=== PATIENT | female | born 1960 | race Caucasian/White ===

== ENCOUNTER 2024-04-01 13:21 | Outpatient (CLI) | payer SELFPAY ==
[2024-04-01 14:51] LABS: #Basophils 0.04 10x3/uL (0.0-0.2); %Basophils 0.4 % (0.0-1.0); %Eosinophils 1.2 % (0.0-10.0); %Monocytes 7.1 % (0.0-10.0); %Neutrophils 62.9 % (42.0-75.0); Hematocrit 46.9 % (36.0-47.0); Mean Corpuscular Hemoglobin 30.2 pg (27.0-31.0); Mean Corpuscular Volume 94.6 fL (78.0-98.0); Mean Platelet Volume 11.8 fL (7.4-10.4); Platelet Count 291 10x3/uL (130-400); RBC Distribution Width 13.5 % (11.5-14.5); Red Blood Cell (RBC) Count 4.96 mill/uL (4.20-5.40)
[2024-04-01 15:05] LABS: Hemoglobin A1c 5.5 % (4.0-6.0)
[2024-04-01 15:11] LABS: ALT (SGPT) 58 U/L (8-55); AST (SGOT) 35 U/L (5-34); Albumin 4.2 g/dL (3.4-4.8); Alkaline Phosphatase 67 U/L (40-110); Anion Gap 12 mmol/L (10-20); BUN (Urea Nitrogen) 16 mg/dL (9.8-20.1); Bilirubin, Total 0.3 mg/dL (0.2-1.2); Calc. Creatinine Clearance 0 mL/min (70-130); Calcium 9.9 mg/dL (7.8-10.44); Carbon Dioxide 28 mmol/L (23-31); Chloride 107 mmol/L (98-107); Estimated GFR 94; Globulin 3.2 g/dL (2.4-3.5); Glucose 95 mg/dL (80-115); Potassium 4.2 mmol/L (3.5-5.1); Protein, Total 7.4 g/dL (5.8-8.1); Sodium 143 mmol/L (136-145)
== END 2024-04-01 13:22 | disposition home or self-care (01) ==
LOC: LABBT 13:21
PROVIDERS: ATTEND Surgery
DX: Z01.818 Encounter for other preprocedural examination (principal); E66.01 Morbid (severe) obesity due to excess calories
CPT/HCPCS: 71046; 80053; 83036; 85025

== ENCOUNTER 2024-04-01 13:30 | Inpatient (IN) | payer OTHER ==
[2024-04-02] MEDS ORDERED: EPINEPHrine 1 MG/ML VIAL ONE (06:39)
[2024-04-02] MEDS ORDERED: Bupivacaine 0.25% HCL 30 ML VIAL ONE (06:39)
[2024-04-02] MEDS ORDERED: fentaNYL PF 100 MCG/2 ML SYRINGE ONE ×2 (06:58→08:59)
[2024-04-02] MEDS ORDERED: Rocuronium Bromide 10 MG/ML (10ML VIAL) ONE (06:58)
[2024-04-02] MEDS ORDERED: Midazolam HCl 2 mg/2 ml Vial ONE (06:58)
[2024-04-02] MEDS ORDERED: PROPOFOL 20 ML ONE (06:58)
[2024-04-02] MEDS ORDERED: MINERAL OIL/WHITE PETROLATUM 3.5 GM TUBE ONE (06:58)
[2024-04-02] MEDS ORDERED: Lidocaine 2% PF 5 ML VIAL ONE (06:58)
[2024-04-02] MEDS ORDERED: Heparin 5,000 UNITS/ML VIAL ONE (07:07)
[2024-04-02] MEDS ORDERED: CEFAZOLIN 2 GM VIAL ONE (07:07)
[2024-04-02] MEDS ORDERED: Dexamethasone 4 mg/ml Vial ONE (07:47)
[2024-04-02] MEDS ORDERED: Ondansetron PF 4 MG/2 ML Vial ONE (07:47)
[2024-04-02] MEDS ORDERED: SUGAMMADEX SODIUM 200 MG/2 ML VIAL ONE (07:49)
[2024-04-02] MEDS ORDERED: Ketamine In 0.9 % NaCl 50 MG/5 ML SYRINGE ONE (07:58)
[2024-04-02] MEDS ORDERED: fentaNYL 50 mcg/mL 1 mL Vial ONE (08:22)
[2024-04-02] MEDS ORDERED: hydrALAZINE 20 MG/ML VIAL SLOW IVP PRN (08:54)
[2024-04-02] MEDS ORDERED: Glucagon 1 MG/ML KIT IM PRN (08:54)
[2024-04-02] MEDS ORDERED: Dextrose 50% Abboject 50 ML SYRINGE SLOW IVP PRN (08:54)
[2024-04-02] MEDS ORDERED: Ipratropium/Albuterol 3 ML NEB NEB PRN (08:54)
[2024-04-02] MEDS ORDERED: Ondansetron PF 4 MG/2 ML Vial IVP PRN ×2 (08:54→09:02)
[2024-04-02] MEDS ORDERED: Promethazine HCl 25 MG/ML VIAL IM PRN ×3 (08:54→09:04)
[2024-04-02] MEDS ORDERED: Dextrose 5% in Water 1,000 ML IV PRN (08:54)
[2024-04-02] MEDS ORDERED: diphenhydrAMINE 50 MG/ML VIAL IVP PRN ×2 (08:54→09:02)
[2024-04-02] MEDS ORDERED: Promethazine HCl 25 MG/ML VIAL ONE (08:59)
[2024-04-02] MEDS ORDERED: HYDROmorphone/PF 10 MG in Sodium Chloride 0.9% 99 ML IV PRN (09:02)
[2024-04-02] MEDS ORDERED: diphenhydrAMINE 50 MG/ML VIAL IM PRN (09:02)
[2024-04-02] MEDS ORDERED: diphenhydrAMINE 25 MG CAP PO PRN (09:02)
[2024-04-02] MEDS ORDERED: Naloxone HCl 0.4 mg/ml Vial IV PRN (09:02)
[2024-04-02] MEDS ORDERED: Ondansetron HCl/PF 4 MG/2 ML Vial IVP PRN (09:04)
[2024-04-02] MEDS ORDERED: HYDROmorphone 2 MG/ML VIAL SLOW IVP PRN (09:04)
[2024-04-02] MEDS ORDERED: ACTIVE PCA FS PRN (09:15)
[2024-04-02] MEDS ORDERED: Famotidine/PF 20 mg/2ml Vial ONE (09:19)
[2024-04-02] MEDS ORDERED: HYDROmorphone 0.5 MG/0.5 ML SYRINGE ONE ×2 (09:26→09:43)
[2024-04-02] MEDS: Ketorolac Tromethamine 30 MG (1 mL) VIAL IVP SCH (13:38)
[2024-04-02 14:43] VITALS: TEMP 97.6
[2024-04-02 14:45] VITALS: BP 156/76
[2024-04-02] MEDS: D5 1/2 NS w/20 mEq KCL 1,000 ML IV SCH (15:03)
[2024-04-02] MEDS: Pantoprazole 40 MG VIAL IVP SCH (15:09)
[2024-04-02] MEDS: CEFAZOLIN 2 GM in Sodium Chloride 0.9% 100 ML IVPB SCH (15:13)
[2024-04-02] MEDS: Enoxaparin 40 MG (0.4 mL) SYRINGE SC SCH (15:16)
== END 2024-04-02 18:40 | disposition home or self-care (01) | DRG 621 ==
LOC: SURG A 04-02 06:06 → SURG B 04-02 11:26
PROVIDERS: ADMIT Surgery; ATTEND Surgery
PROC: 0DB64Z3 Excision of Stomach, Percutaneous Endoscopic Approach, Vertical (ICD-10-PCS; principal; 2024-04-02)
PROC: 8E0W4CZ Robotic Assisted Procedure of Trunk Region, Percutaneous Endoscopic Approach (ICD-10-PCS; 2024-04-02)
PROC: 3E033XZ Introduction of Vasopressor into Peripheral Vein, Percutaneous Approach (ICD-10-PCS; 2024-04-02)
DX: E66.01 Morbid (severe) obesity due to excess calories (principal); Z68.36 Body mass index [BMI] 36.0-36.9, adult; Z79.899 Other long term (current) drug therapy
CPT/HCPCS: 88307; J0171; J0665; J1100; J1170; J1644; J1885; J2250; J2405; J2470; J2550; J2704; J3010; J3480; J3490